=== PATIENT | female | born 1950 | race Caucasian/White ===

== ENCOUNTER 2018-11-04 11:43 | Inpatient (IN) | payer OTHER ==
[~2018-11-04] VITALS: Ht 160 cm; Wt 66.0 kg
[2018-11-04 12:22] LABS: BASOPHILS # (AUTO) 0.06 x10^3/uL (0-0.1); BASOPHILS % (AUTO) 1 % (0-1); EOSINOPHILS # (AUTO) 0.36 x10^3/uL (0-0.4); EOSINOPHILS % (AUTO) 3 % (1-7); LYMPHOCYTES # (AUTO) 2.61 x10^3/uL (1-3.4); LYMPHOCYTES % (AUTO) 24 % (22-44); MD NO; MEAN CORPUSCULAR HEMOGLOBIN 28.3 pg (27.0-34.8); MEAN CORPUSCULAR HGB CONC 32.2 g/dL (32.4-35.8); MEAN CORPUSCULAR VOLUME 87.8 fL (80-100); MEAN PLATELET VOLUME 8.2 fL (7.4-10.4); MONOCYTES # (AUTO) 0.76 x10^3/uL (0.2-0.8); MONOCYTES % (AUTO) 7 % (2-9); NEUTROPHILS % (AUTO) 65 % (42-75); PLATELET COUNT 545 x10^3/uL (130-400); RED BLOOD COUNT 4.03 x10^6/uL (3.82-5.3)
[2018-11-04 12:35] LABS: ALBUMIN 3.2 g/dL (3.4-5.0); ANION GAP 5 mmol/L (5-15); CALCIUM 9.2 mg/dL (8.5-10.1); CHLORIDE 108 mmol/L (98-107)
[2018-11-04 12:46] LABS: ALANINE AMINOTRANSFERASE 23 U/L (12-78); ALKALINE PHOSPHATASE 129 U/L (45-117); BILIRUBIN,TOTAL 0.4 mg/dL (0.2-1.0); TOTAL PROTEIN 6.7 g/dL (6.4-8.2)
[2018-11-04 13:20] LABS: HCT (SEDRATE) 35.4 % (34.6-47.8)
[2018-11-04] MEDS ORDERED: HYDROmorphone 1 MG/ML, 1ML AMP ONE ×2 (15:33→17:40)
[2018-11-04] MEDS ORDERED: ONDANSETRON 2MG/ML, 2ML ONE (15:33)
--- NOTE | 2018-11-04 15:35 | NUR ---
CORDELL DUNCAN AT BEDSIDE, PT ASSESSMENT REVIEWED AND QUESTIONS ANSWERED. DR CRISOSTOMO ALSO EXAMINED AND DISCUSSED PLAN TO CONSULT WITH DR. HAGEN.
[2018-11-04] MEDS: HYDROmorphone 2 MG/ML, 1ML IVPush PRN ×2 (15:47→17:41)
[2018-11-04] MEDS ORDERED: ATOR-2 PO (16:00)
[2018-11-04] MEDS ORDERED: POTA20TA6 PO (16:00)
[2018-11-04] MEDS ORDERED: MULT-717 PO (16:00)
[2018-11-04] MEDS ORDERED: ONDANSETRON 2MG/ML, 2ML IVPush ONE (16:00)
[2018-11-04] MEDS ORDERED: DIVA125T31 PO (16:00)
[2018-11-04] MEDS ORDERED: LISI-170 PO (16:00)
[2018-11-04] MEDS ORDERED: ASPI-515 PO (16:00)
[2018-11-04] MEDS ORDERED: SODIUM CHLORIDE FLUSH 10ML SYR IVF ONE (16:00)
--- NOTE | 2018-11-04 17:08 | NUR ---
PT OOB AMBULATE TO BATHROOM USING CRUTCHES W/O DIFFICULTY. RTD TO [facility] W/O INCIDENT. PAIN LEVEL 2/10
[2018-11-04 18:08] VITALS: BP 125/79
[2018-11-04 18:27] VITALS: BP 125/79
[2018-11-04] MEDS ORDERED: HYDROmorphone 2 MG/ML, 1ML ONE (21:32)
[2018-11-04] MEDS: HYDROmorphone 1 MG/ML, 1ML AMP IV PRN (21:34)
[2018-11-05 01:28] VITALS: BP 138/76
[2018-11-05] MEDS ORDERED: HYDROmorphone 2 MG/ML, 1ML ONE ×2 (01:42→06:45)
[2018-11-05] MEDS: HYDROmorphone 1 MG/ML, 1ML AMP IV PRN ×2 (01:44→06:47)
[2018-11-05] MEDS ORDERED: LIDOCAINE 1%, 10ML INFIL ONE (07:30)
[2018-11-05 07:54] VITALS: BP 114/80
[2018-11-05] MEDS: OXYcodone 5 MG/5 ML ORAL.SOL UDC PO PRN ×3 (09:46→20:53)
[2018-11-05] MEDS: ATORVASTATIN 40 MG TABLET PO SCH (12:00)
[2018-11-05] MEDS: LISINOPRIL 20 MG TABLET PO SCH (12:00)
[2018-11-05] MEDS: DIVALPROEX 250 MG TABLET.DR PO SCH (12:01)
[2018-11-05 15:01] VITALS: BP 167/81
[2018-11-05 19:11] VITALS: BP 173/82
[2018-11-05] MEDS ORDERED: ATORVASTATIN 40 MG TABLET PO SCH (21:00)
[2018-11-06 00:15] VITALS: BP 135/81
[2018-11-06] MEDS ORDERED: HYDROmorphone 2 MG/ML, 1ML ONE ×6 (00:20→20:02)
[2018-11-06] MEDS: HYDROmorphone 1 MG/ML, 1ML AMP IV PRN ×7 (00:23→20:05)
[2018-11-06 06:34] VITALS: BP 100/67
[2018-11-06] MEDS: DIVALPROEX 250 MG TABLET.DR PO SCH (08:47)
[2018-11-06] MEDS: LISINOPRIL 20 MG TABLET PO SCH (08:47)
[2018-11-06] MEDS: ATORVASTATIN 40 MG TABLET PO SCH (08:47)
[2018-11-06] MEDS ORDERED: DIVALPROEX 250 MG TABLET.DR PO SCH (11:00)
[2018-11-06] MEDS ORDERED: KETOROLAC 60 MG/2 ML ONE (12:06)
[2018-11-06] MEDS ORDERED: TRANEXAMIC ACID 100 MG/ML, 10ML ONE (12:06)
[2018-11-06] MEDS ORDERED: SODIUM CHLORIDE 0.9% 50 ML ONE (12:06)
[2018-11-06] MEDS ORDERED: ROPIvacaine/PF 0.2%, 20 ML ONE (12:06)
[2018-11-06] MEDS ORDERED: EPINEPHRINE 1 MG/ML, 1ML ONE ×3 (12:06→15:48)
[2018-11-06 13:06] VITALS: BP 154/84
[2018-11-06] MEDS ORDERED: FENTANYL PF 250 MCG/5ML ONE (13:58)
[2018-11-06] MEDS ORDERED: MIDAZOLAM 1 MG/ML, 2ML ONE ×2 (13:58→16:30)
[2018-11-06] MEDS ORDERED: VANCOMYCIN 1,000 MG ONE (14:00)
[2018-11-06] MEDS ORDERED: TOBRAMYCIN SULFATE 1.2 GM IMP ONE (14:02)
[2018-11-06] MEDS ORDERED: ACETAMINOPHEN 500 MG TABLET PO ONE (15:00)
[2018-11-06] MEDS ORDERED: DIAZEPAM 5 MG TABLET PO ONE (15:00)
[2018-11-06] MEDS ORDERED: SCOPOLAMINE PATCH, 1.5MG PATCH.TD72 TD ONE (15:00)
[2018-11-06] MEDS ORDERED: DEXAMETHASONE 4 MG/ML, 5ML ONE (15:01)
[2018-11-06] MEDS ORDERED: ONDANSETRON 2MG/ML, 2ML ONE ×2 (15:01→15:58)
[2018-11-06] MEDS ORDERED: CEFAZOLIN 1,000 MG ONE (15:01)
[2018-11-06] MEDS ORDERED: BUPIVACAINE/PF-EPI 0.5% 1:200K ONE (15:12)
[2018-11-06] MEDS ORDERED: SUCCINYLCHOLINE 20 MG/ML, 10ML ONE (15:26)
[2018-11-06] MEDS ORDERED: EPHEDRINE 50 MG/ML, 1ML ONE (15:26)
[2018-11-06] MEDS ORDERED: PROPOFOL 10 MG/ML, 20ML ONE (15:26)
[2018-11-06] MEDS ORDERED: ROCURONIUM 10MG/ML,5ML ONE (15:26)
[2018-11-06] MEDS ORDERED: OXYcodone 5 MG/5 ML ORAL.SOL UDC PO PRN (15:30)
[2018-11-06] MEDS ORDERED: LORazepam 2 MG/ML, 1ML IVPush PRN (15:30)
[2018-11-06] MEDS ORDERED: MORPHINE SULFATE 4 MG/ML, 1ML IVPush PRN (15:30)
[2018-11-06] MEDS ORDERED: PROMETHAZINE 12.5 MG SUPP PR PRN (15:30)
[2018-11-06] MEDS ORDERED: ALBUTEROL SULFATE 2.5 MG/3 ML NPPB PRN (15:30)
[2018-11-06] MEDS ORDERED: FENTANYL PF 100 MCG/2ML IV PRN (15:30)
[2018-11-06] MEDS ORDERED: ONDANSETRON 2MG/ML, 2ML IV PRN (15:30)
[2018-11-06] MEDS ORDERED: ONDANSETRON ODT 8 MG PO PRN (15:30)
[2018-11-06] MEDS ORDERED: MIDAZOLAM 1 MG/ML, 2ML IV PRN (15:30)
[2018-11-06] MEDS ORDERED: DIAZEPAM 5 MG/ML, 2ML IVPush PRN (15:30)
[2018-11-06] MEDS ORDERED: EPHEDRINE 50 MG/ML, 1ML IVPush PRN (15:30)
[2018-11-06] MEDS ORDERED: hydrALAzine 20 MG/ML, 1ML IV PRN (15:30)
[2018-11-06] MEDS ORDERED: LABETALOL 5MG/ML, 20ML IV PRN (15:30)
[2018-11-06] MEDS ORDERED: MEPERIDINE/PF 25MG/0.5ML IVPush PRN (15:30)
[2018-11-06] MEDS ORDERED: PROMETHAZINE 25 MG/ML, 1ML IV PRN (15:30)
[2018-11-06] MEDS ORDERED: MINERAL OIL 10 ML VIAL MC ONE (15:44)
[2018-11-06] MEDS ORDERED: FENTANYL PF 100 MCG/2ML ONE (16:23)
[2018-11-06] MEDS ORDERED: HYDROmorphone 1 MG/ML, 1ML AMP ONE (16:24)
[2018-11-06] MEDS ORDERED: OXYcodone 5 MG/5 ML ORAL.SOL UDC ONE (16:24)
[2018-11-06] MEDS ORDERED: VANCOMYCIN PER PHARMACY MC PRN (16:30)
[2018-11-06] MEDS: HYDROmorphone 2 MG/ML, 1ML IVPush PRN ×3 (16:33→16:54)
[2018-11-06] MEDS ORDERED: PHARMACOKINETIC MONITORING MC PRN (17:00)
[2018-11-06] MEDS ORDERED: PHARMACOKINETIC CONSULTATION MC ONE (17:00)
[2018-11-06] MEDS: VANCOMYCIN 1,300 MG in SODIUM CHLORIDE 0.9% 250 ML IV SCH (17:32)
[2018-11-06 18:53] VITALS: BP 114/75
[2018-11-06] MEDS: ASPIRIN 81 MG TABLET EC PO SCH (20:05)
[2018-11-06] MEDS: OXYcodone 5 MG/5 ML ORAL.SOL UDC PO PRN (23:14)
[2018-11-06] MEDS: CEFAZOLIN PMX 1GM/50ML 50 ML IV SCH (23:15)
[2018-11-06 23:32] VITALS: BP 126/73
[2018-11-07] MEDS ORDERED: HYDROmorphone 2 MG/ML, 1ML ONE ×5 (00:01→19:38)
[2018-11-07] MEDS: HYDROmorphone 1 MG/ML, 1ML AMP IV PRN ×4 (00:03→19:39)
[2018-11-07 04:04] VITALS: BP 105/62
[2018-11-07] MEDS: OXYcodone 5 MG/5 ML ORAL.SOL UDC PO PRN ×4 (04:04→17:03)
[2018-11-07 05:14] LABS: CREATININE 0.85 mg/dL (0.55-1.02)
[2018-11-07] MEDS: CEFAZOLIN PMX 1GM/50ML 50 ML IV SCH (06:50)
[2018-11-07 07:08] VITALS: BP 95/59
[2018-11-07] MEDS: ATORVASTATIN 40 MG TABLET PO SCH (08:28)
[2018-11-07] MEDS: DIVALPROEX 250 MG TABLET.DR PO SCH (08:28)
[2018-11-07] MEDS: ASPIRIN 81 MG TABLET EC PO SCH ×2 (08:28→19:40)
[2018-11-07] MEDS: LISINOPRIL 20 MG TABLET PO SCH (08:30)
[2018-11-07] MEDS: AMPICILLIN/SULBACTAM 3 GM in SODIUM CHLORIDE 0.9% 100 ML IV SCH ×2 (12:38→20:34)
[2018-11-07 13:37] VITALS: BP 112/68
[2018-11-07] MEDS: VANCOMYCIN 1,300 MG in SODIUM CHLORIDE 0.9% 250 ML IV SCH (17:03)
[2018-11-07 20:23] VITALS: BP 108/66
[2018-11-08] MEDS ORDERED: HYDROmorphone 2 MG/ML, 1ML ONE ×6 (00:07→21:01)
[2018-11-08] MEDS: HYDROmorphone 1 MG/ML, 1ML AMP IV PRN ×6 (00:09→21:05)
[2018-11-08 01:42] VITALS: BP 124/69
[2018-11-08] MEDS: OXYcodone 5 MG/5 ML ORAL.SOL UDC PO PRN ×2 (03:17→15:37)
[2018-11-08] MEDS: AMPICILLIN/SULBACTAM 3 GM in SODIUM CHLORIDE 0.9% 100 ML IV SCH ×3 (04:47→22:48)
[2018-11-08] MEDS: ASPIRIN 81 MG TABLET EC PO SCH ×2 (08:37→23:07)
[2018-11-08] MEDS: ATORVASTATIN 40 MG TABLET PO SCH (08:37)
[2018-11-08] MEDS: DIVALPROEX 250 MG TABLET.DR PO SCH (08:37)
[2018-11-08 08:39] VITALS: BP 115/72
[2018-11-08] MEDS: LISINOPRIL 20 MG TABLET PO SCH (08:39)
[2018-11-08 13:50] VITALS: BP 135/66
[2018-11-08 20:00] VITALS: BP 118/74
[2018-11-08] MEDS: VANCOMYCIN 1,300 MG in SODIUM CHLORIDE 0.9% 250 ML IV SCH (21:05)
[2018-11-09] MEDS: OXYcodone 5 MG/5 ML ORAL.SOL UDC PO PRN ×5 (00:05→21:11)
[2018-11-09 01:26] VITALS: BP 82/45
[2018-11-09] MEDS ORDERED: HYDROmorphone 2 MG/ML, 1ML ONE ×4 (04:57→17:26)
[2018-11-09] MEDS: AMPICILLIN/SULBACTAM 3 GM in SODIUM CHLORIDE 0.9% 100 ML IV SCH ×3 (07:00→22:57)
[2018-11-09 07:59] VITALS: BP 111/70
[2018-11-09] MEDS: LISINOPRIL 20 MG TABLET PO SCH (08:06)
[2018-11-09] MEDS: ASPIRIN 81 MG TABLET EC PO SCH ×2 (08:06→20:40)
[2018-11-09] MEDS: ATORVASTATIN 40 MG TABLET PO SCH (08:06)
[2018-11-09] MEDS: DIVALPROEX 250 MG TABLET.DR PO SCH (08:06)
[2018-11-09] MEDS: HYDROmorphone 1 MG/ML, 1ML AMP IV PRN ×3 (10:27→17:30)
[2018-11-09 13:27] VITALS: BP 105/60
[2018-11-09] MEDS ORDERED: VANCOMYCIN 1,300 MG in SODIUM CHLORIDE 0.9% 250 ML IV SCH (16:00)
[2018-11-09 19:04] VITALS: BP 119/55
[2018-11-10] MEDS: OXYcodone 5 MG/5 ML ORAL.SOL UDC PO PRN ×3 (01:57→14:02)
[2018-11-10 03:09] VITALS: BP 108/56
[2018-11-10] MEDS: AMPICILLIN/SULBACTAM 3 GM in SODIUM CHLORIDE 0.9% 100 ML IV SCH (06:34)
[2018-11-10 07:15] VITALS: BP 108/50
[2018-11-10] MEDS: LISINOPRIL 20 MG TABLET PO SCH (08:28)
[2018-11-10] MEDS: ASPIRIN 81 MG TABLET EC PO SCH (08:28)
[2018-11-10] MEDS: DIVALPROEX 250 MG TABLET.DR PO SCH (08:28)
[2018-11-10] MEDS: ATORVASTATIN 40 MG TABLET PO SCH (08:30)
[2018-11-10 13:46] VITALS: BP 136/73
[2018-11-10 17:09] VITALS: BP 116/66
[2018-11-10] MEDS ORDERED: LINE600T37 PO (17:09)
[2018-11-10] MEDS ORDERED: OXYC5CAP2 PO (17:09)
[2018-11-10] MEDS ORDERED: LINEZOLID 600 MG TABLET PO SCH (21:00)
== END 2018-11-10 17:48 | disposition home or self-care (01) | DRG 901 ==
LOC: OR 15:10 → 4NOR 17:50
PROVIDERS: ADMIT Orthopaedic Surgery; ATTEND Orthopaedic Surgery
PROC: 0JBN0ZZ Excision of Right Lower Leg Subcutaneous Tissue and Fascia, Open Approach (ICD-10-PCS; 2018-11-06)
PROC: 0HBHXZZ Excision of Right Upper Leg Skin, External Approach (ICD-10-PCS; 2018-11-06)
PROC: 0HRKX74 Replacement of Right Lower Leg Skin with Autologous Tissue Substitute, Partial Thickness, External Approach (ICD-10-PCS; principal; 2018-11-06 13:00)
DX: T81.31XA Disruption of external operation (surgical) wound, not elsewhere classified, initial encounter (principal); J96.01 Acute respiratory failure with hypoxia; I96 Gangrene, not elsewhere classified; L03.115 Cellulitis of right lower limb; E78.00 Pure hypercholesterolemia, unspecified; I10 Essential (primary) hypertension; Z86.19 Personal history of other infectious and parasitic diseases; Z87.891 Personal history of nicotine dependence; Z95.0 Presence of cardiac pacemaker; Z96.653 Presence of artificial knee joint, bilateral; Z91.018 Allergy to other foods; Y83.8 Other surgical procedures as the cause of abnormal reaction of the patient, or of later complication, without mention of misadventure at the time of the procedure; Y92.89 Other specified places as the place of occurrence of the external cause
CPT/HCPCS: 36415; 99285; J3260; 80053; 80202; 82565; 84520; 85025; 85651; 86140; 87015; 87070; 87075; 87102; 87116; 87205; 87206; 96374; G0378; J0171; J0295; J0690; J1100; J1170; J1885; J2250; J2405; J2704; J2795; J3010; J3370; J3490; J0330; J7050

== ENCOUNTER → 2020-03-14 | Outpatient (CLI) | payer OTHER ==
[~2020-03-14] MED LIST: ASPI-515 PO; ATOR-2 PO; DIVA125T31 PO; LINE600T12 PO; LISI-170 PO; MULT-717 PO; OXYC5CAP2 PO; POTA20TA6 PO
== END | disposition home or self-care (01) ==
LOC: CFH 12:07
PROVIDERS: ATTEND Orthopaedic Surgery
DX: I82.452 Acute embolism and thrombosis of left peroneal vein (principal); M17.12 Unilateral primary osteoarthritis, left knee; M25.562 Pain in left knee

== ENCOUNTER → 2020-03-22 | Outpatient (CLI) | payer OTHER | END | disposition home or self-care (01) | LOC: CFH 12:33 | PROVIDERS: ATTEND Orthopaedic Surgery | DX: T84.84XA Pain due to internal orthopedic prosthetic devices, implants and grafts, initial encounter (principal); M79.662 Pain in left lower leg; X58.XXXA Exposure to other specified factors, initial encounter; Y93.89 Activity, other specified; Y92.89 Other specified places as the place of occurrence of the external cause; Y99.8 Other external cause status ==